=== PATIENT | female | born 1995 | race American Indian/Alaskan Native ===

== ENCOUNTER 2018-10-24 09:27 | Emergency (ER) | payer OTHER ==
[2018-10-24 09:36] VITALS: BP 123/78
--- NOTE | 2018-10-24 10:02 | Emergency Department Report ---
ED Female HPI - General Chief complaint: Vaginal Bleeding Stated complaint: ABDOMINAL PAIN/SPOTTING Time Seen by Provider: 10/24/18 09:56 Source: patient Mode of arrival: Ambulatory Limitations: No Limitations - History of Present Illness Complaint: vaginal bleeding, vaginal discharge -: week(s) Radiation: suprapubic Severity scale (0 -10): 3 Quality: cramping Consistency: intermittent Are you Now?: Yes - Related Data Allergies Allergy/AdvReac Type Severity Reaction Status Date / Time No Known Allergies Allergy Unverified 10/24/18 09:33 ED Review of Systems ROS: Stated complaint: ABDOMINAL PAIN/SPOTTING Other details as noted in HPI Comment: All other systems reviewed and negative Respiratory: denies: cough, shortness of breath Cardiovascular: chest pain (for one year on and off) Gastrointestinal: denies: abdominal pain, nausea, vomiting Musculoskeletal: back pain (for one year) Neurological: headache (for one year) ED Past Medical Hx - Past Medical History Previous Medical History?: Yes - Surgical History Past Surgical History?: Yes Additional Surgical History: c section, june 19, 2017 - Social History Smoking Status: Never Smoker Substance Use Type: Alcohol, Marijuana ED Physical Exam - General Limitations: No Limitations General appearance: alert, in no apparent distress - Head Head exam: Present: atraumatic, normocephalic, normal inspection - ENT ENT exam: Present: normal exam, normal orophraynx, mucous membranes moist - Neck Neck exam: Present: normal inspection, full ROM. Absent: tenderness, meningismus, lymphadenopathy, thyromegaly - Respiratory Respiratory exam: Present: normal lung sounds bilaterally, chest wall tenderness - Cardiovascular Cardiovascular Exam: Present: regular rate, normal rhythm, normal heart sounds - GI/Abdominal GI/Abdominal exam: Present: soft, normal bowel sounds. Absent: distended, tenderness, guarding, rebound, rigid, organomegaly, mass, bruit, pulsatile mass - Extremities Exam Extremities exam: Present: normal inspection, full ROM, normal capillary refill - Back Exam Back exam: Present: normal inspection, full ROM. Absent: tenderness, CVA tenderness (R), CVA tenderness (L), muscle spasm, paraspinal tenderness, vertebral tenderness - Neurological Exam Neurological exam: Present: alert, oriented X3, CN II-XII intact, normal gait, reflexes normal - Skin Skin exam: Present: warm, intact, normal color ED Course Vital Signs 10/24/18 09:34 Temperature 98.4 F Pulse Rate 69 Respiratory 16 Rate Blood Pressure 123/78 O2 Sat by Pulse 100 Oximetry ED Medical Decision Making - Lab Data Result diagrams: 10/24/18 09:39 10/24/18 09:39 Critical care attestation.: If time is entered above; I have spent that time in minutes in the direct care of this critically ill patient, excluding procedure time. ED Disposition Clinical Impression: Vaginitis, UTI (urinary tract infection) Disposition: TO HOME OR SELFCARE Is pt being admited?: No Condition: Stable Instructions: Bacterial Vaginosis (ED), Urinary Tract Infection in Women (ED) Referrals: BERNICE ORTEGA MD [Primary Care Provider] - 3-5 Days
[2018-10-24 10:19] LABS: BUN/Creatinine Ratio 15; Blood Urea Nitrogen 9 mg/dL (7-17); Calcium 9.3 mg/dL (8.4-10.2); Hemolysis Index 4
[2018-10-24 10:21] LABS: Basophils # (Auto) 0.1 K/mm3 (0.0-0.1); Basophils % (Auto) 1.3 % (0.0-1.8); Eosinophils # (Auto) 0.1 K/mm3 (0.0-0.4); Eosinophils % (Auto) 1.8 % (0.0-4.3); Hematocrit 32.9 % (30.3-42.9); Hemoglobin 10.3 gm/dl (10.1-14.3); Lymphocytes # (Auto) 1.6 K/mm3 (1.2-5.4); Lymphocytes % (Auto) 31.5 % (13.4-35.0); Mean Corpuscular HGB Conc 31 % (30-34); Monocytes # (Auto) 0.5 K/mm3 (0.0-0.8); Monocytes % (Auto) 9.6 % (0.0-7.3); Platelet Count 226 K/mm3 (140-440); Red Blood Count 4.87 M/mm3 (3.65-5.03)
[2018-10-24 10:30] LABS: Mean Corpuscular Hemoglobin 21 pg (28-32); Mean Corpuscular Volume 68 fl (79-97)
[2018-10-24 10:34] LABS: Bilirubin,Urine NEG (Negative); Blood,Urine NEG (Negative); Color,Urine Yellow (Yellow); Mucus,Urine 3+ /HPF
[2018-10-24 10:53] LABS: HCG Qualitative,Urine Negative (Negative)
== END 2018-10-24 11:50 | disposition home or self-care (01) ==
LOC: ED 09:27
DX: N39.0 Urinary tract infection, site not specified (principal); N76.0 Acute vaginitis; F12.90 Cannabis use, unspecified, uncomplicated; F10.10 Alcohol abuse, uncomplicated; Z98.890 Other specified postprocedural states
CPT/HCPCS: 36415; 80048; 81001; 81025; 84702; 85025; 87086; 99283